=== PATIENT | female | born 1980 | race Caucasian/White ===

== ENCOUNTER 2017-11-25 18:18 | Emergency (ER) | payer BC ==
[~2017-11-25] VITALS: Ht 165.1 cm; Wt 100.0 kg
[~2017-11-25 18:18] MED LIST: AMOXICILLIN500 MG PO; CEPHALEXIN500 MG PO; HYDROCHLORO25 MG/TAB PO; HYDROCHLOROT12.5 MG PO; LORTAB 5 OR; MULTI PO; MULTI VIT PO; NAPROSYN500 MG PO; NO; NO HOME MEDS; ROBITUSSIN AC10 ML PO; ROBITUSSIN200 MG/10 PO; TAM75CAP PO; ZOFRAN4 MG OR; ZPAK PO; [UNRECOGNIZED DRUG - CODE] OR
[2017-11-25] MEDS ORDERED: IBUPROFEN600 MG PO (19:18)
[2017-11-25] MEDS ORDERED: KEFLEX500 M1 PO (19:18)
[2017-11-25 20:00] VITALS: BP 128/72
== END 2017-11-25 20:23 | disposition home or self-care (01) | DRG 603 ==
LOC: ED 18:18
PROC: 0X953ZZ Drainage of Left Axilla, Percutaneous Approach (ICD-10-PCS; principal; 2017-11-25)
DX: L02.412 Cutaneous abscess of left axilla (principal); F17.210 Nicotine dependence, cigarettes, uncomplicated

== ENCOUNTER 2017-11-27 11:25 | Emergency (ER) | payer BC ==
[~2017-11-27] VITALS: Ht 165.1 cm; Wt 104.4 kg
[~2017-11-27 11:25] MED LIST changes: +IBUPROFEN600 MG PO; +KEFLEX500 M1 PO
[2017-11-27] MEDS ORDERED: BACTRIM DS1 TAB PO (12:09)
[2017-11-27 12:12] VITALS: BP 115/74
== END 2017-11-27 12:20 | disposition home or self-care (01) | DRG 951 ==
LOC: ED 11:25
DX: Z48.01 Encounter for change or removal of surgical wound dressing (principal); F17.210 Nicotine dependence, cigarettes, uncomplicated

== ENCOUNTER 2019-01-24 11:09 | Emergency (ER) | payer BC ==
[~2019-01-24] VITALS: Ht 165.1 cm; Wt 85.0 kg
[~2019-01-24 11:09] MED LIST changes: +BACTRIM DS1 TAB PO
[2019-01-24 12:08] LABS: IMMATURE GRANULOCYTES 0.4 % (0.0-5.0); MEAN CORPUSCULAR HGB 31.4 pG CALC (26.0-32.0); MEAN CORPUSCULAR HGB CONC 33.1 g/L CALC (32.0-36.0); NEUT# 4.8 thou/uL (2.00-7.15); RED BLOOD COUNT 5.06 mill/uL (4.20-5.60); RED CELL DISTRI WIDTH 13.4 % (11.5-15.5)
[2019-01-24 12:10] LABS: ALBUMIN 4.6 g/dL (3.2-5.0); ALKALINE PHOSPHATASE 67 u/l (38-126); ANION GAP 13 (6-22 (CALC)); BILIRUBIN, TOTAL 0.5 mg/dL (0.0-1.4); BUN 10 mg/dL (7-17); BUN/CREATININE RATIO 14 (12-20 (CALC)); CARBON DIOXIDE 27 mmol/l (22-30); CHLORIDE 103 mmol/l (95-108); CREATININE 0.7 mg/dL (0.5-1.0); GFR > 60 ML/MIN (>=60 (CALC)); GFR FOR AFR.AMER. > 60 ML/MIN (>=60 (CALC)); POTASSIUM 4.7 mmol/l (3.5-5.1); SGOT/AST 31 u/l (14-36); SODIUM 139 mmol/l (137-146)
[2019-01-24 12:17] LABS: HEMATOCRIT 48.1 % (37.0-47.0); HEMOGLOBIN 15.9 g/dl (12.0-16.0); MEAN CELL VOLUME 95.1 fL CALC (80.0-100.0)
[2019-01-24 12:21] LABS: MYOGLOBIN 24 ng/mL (0 - 62)
[2019-01-24 13:34] LABS: URINE BILIRUBIN - DIPSTICK NEGATIVE (NEGATIVE); URINE BLOOD DIPSTICK NEGATIVE (NEGATIVE); URINE COLOR YELLOW; URINE GLUCOSE - DIPSTICK NEGATIVE (NEGATIVE); URINE KETONE NEGATIVE (NEGATIVE); URINE LEUK ESTERASE NEGATIVE (NEGATIVE); URINE NITRITE - DIPSTICK NEGATIVE (Negative); URINE PROTEIN - DIPSTICK NEGATIVE (NEG-TRACE); URINE UROBILINOGEN - DIPSTICK 0.2 E.U./dL (0.2)
[2019-01-24 13:41] LABS: BARBITURATES NEGATIVE (NEGATIVE); COCAINE NEGATIVE (NEGATIVE); METHADONE NEGATIVE (NEGATIVE); OXCYCODONE NEGATIVE (NEGATIVE); TETRAHYDROCANNABIONOL NEGATIVE (NEGATIVE); TRICYLIC ANTIDEPRESSANTS NEGATIVE (NEGATIVE)
[2019-01-24] MEDS ORDERED: ANTIVERT PO (13:42)
[2019-01-24] MEDS ORDERED: MEDDOSEPAK PO (13:42)
[2019-01-24] MEDS ORDERED: ONDANSETRON4 MG PO (13:42)
[2019-01-24 13:55] VITALS: BP 112/70
== END 2019-01-24 14:04 | disposition home or self-care (01) | DRG 149 ==
LOC: ED 11:09
PROVIDERS: Emergency Medicine
DX: R42 Dizziness and giddiness (principal); F17.200 Nicotine dependence, unspecified, uncomplicated

== ENCOUNTER 2019-05-16 | Emergency (ER) | payer OTHER, BC ==
[~2019-05-16] MED LIST changes: +ANTIVERT PO; +MEDDOSEPAK PO; +ONDANSETRON4 MG PO
== END 2019-05-16 19:30 | disposition home or self-care (01) | DRG 605 ==
DX: S80.02XA Contusion of left knee, initial encounter (principal); F17.210 Nicotine dependence, cigarettes, uncomplicated; W18.39XA Other fall on same level, initial encounter; Y93.89 Activity, other specified; Y92.211 Elementary school as the place of occurrence of the external cause; Y99.0 Civilian activity done for income or pay
CPT/HCPCS: L1830

== ENCOUNTER 2019-08-06 | Emergency (ER) | payer BC, OTHER ==
[2019-08-06] MEDS ORDERED: FLEXERIL PO (20:13)
== END 2019-08-06 20:29 | disposition home or self-care (01) | DRG 556 ==
DX: M62.838 Other muscle spasm (principal); R51 Headache; F17.210 Nicotine dependence, cigarettes, uncomplicated; V48.5XXA Car driver injured in noncollision transport accident in traffic accident, initial encounter